=== PATIENT | male | born 1975 | race Hispanic/Latino ===

== ENCOUNTER 2021-02-19 16:13 | Emergency (ER) | payer SELFPAY ==
[2021-02-19 16:14] VITALS: BP 145/90; PULSE 76; RESP 16; TEMP 36.3; O2SAT 97; BMI 26.6
--- NOTE | 2021-02-19 16:36 | CT_ITS ---
STUDY: CT ABDOMEN AND PELVIS WITHOUT CONTRAST REASON FOR EXAM: Male, 46 years old. Right flank pain RADIATION DOSAGE (If Supplied By Facility): CTDIvol = ( 7.00 ) mGy, DLP = ( 407.48 ) mGycm TECHNIQUE: Axial CT images of the abdomen and pelvis were obtained without IV contrast administration. Multiplanar reconstructions. The protocol utilizes one or more of the following dose reduction techniques: automated exposure control, adjustment of mA and/or kV according to patient size, and/or use of iterative reconstruction technique. COMPARISON: No relevant priors. FINDINGS: Lower Chest Lungs: Normal. Heart: Normal. Ribs: Normal. Organs / Endocrine Liver: Normal. Gallbladder / Biliary Tree: Normal. Pancreas: Normal. Spleen: Normal. Adrenal Glands: Normal. Peritoneum Fluid Collections: None. Free Air: None. Intestinal Tract Evaluation of the GI tract is limited by absence of oral contrast. Cannot exclude stomach wall thickening. No dilated loops of bowel or evidence for obstruction. Cannot exclude segmental thickening of the adan of the small or large bowel. Cannot exclude enteritis or colitis. Moderate diffuse fecal retention. Appendix within normal limits. Urinary System Unremarkable kidneys. No definite renal or ureteral stones are seen. There is no hydronephrosis on either side. Ureter (right): Normal. Ureter (left): Normal. Bladder: Normal. Reproductive Organs Male, prostate: Enlarged prostate. Vessels Aorta: Normal. Inferior Vena Cava: Normal. Iliac Arteries: Normal. Lymph Nodes Retroperitoneal: Normal. Iliac / Inguinal: Normal. Mesenteric: Non-visualized. Bones Vertebrae: Normal. Pelvis / Sacrum: Normal. Abdominal Wall / Inguinal Region Defect: None. Hernia: None. CT/Abdomen/Pelvis without Cont IMPRESSION: No definite acute or significant abnormality seen. Electronically Signed: Trevor Lazar MD at 17:29 EDT , Service support ,
--- NOTE | 2021-02-19 16:40 | ED.VISSUMM ---
- ER Visit Summary Date of Service: 02/19/21 Chief Complaint: Right flank pain History of Present Illness: The patient is a 46 M past medical history of prior appendectomy and hernia repair. Patient states for the last 2 days since yesterday has had right-sided flank pain. Denies any nausea, vomiting, diarrhea, dysuria or fever. No prior history. No trauma. Nothing particular makes the pain better or worse. He denies any hematuria. He is never had a kidney stone. He still has his gallbladder. The pain is not necessarily associated with food. Physical Examination: Middle-aged male vital signs stable afebrile. H EENT exam unremarkable. Neck nontender. Lungs clear to auscultation bilaterally. Heart regular rhythm no murmur. Rate about 70. Abdomen is soft. Nondistended normal bowel sounds no peritoneal signs. He may have minimal right flank tenderness. There is no ecchymosis or bruising. No subcu air crepitance. Right lower quadrant McBurney's point are completely nontender right upper quadrant there is no Katz sign or any significant tenderness. There is no signs of trauma. Left side of his abdomen is nontender. Back nontender. No CVA tenderness. Patient is moving all 4 extremities. No edema. Neurologically is awake and alert with no focal motor deficits. Test Results: CBC normal white count of 7. Hemoglobin 15. No bands. Chemistries unremarkable normal creatinine and gap. Liver enzymes normal. UA normal. No signs of infection or blood. CT flank study as read by the radiologist and reviewed by me shows no acute abnormality. [place] exam at 5:50 PM patient is doing well. Will be discharged home. We went over all his test results. Emergency Department Course and Treatment: [place] male with right flank pain. He will be given IV Toradol for pain. CAT scan labs and urinalysis are being obtained. He has a relatively benign exam. Treatment Plan: Local follow-up with a primary care physician. Return if worse. Tylenol and/or Motrin for pain. Disposition: discharge Impression: Acute right flank pain of uncertain etiology. This note was generated with [employer] dictation software. It may contain incorrect words, spelling, and punctuation that were not noted in review of the chart prior to signing ED Disposition - Plan for ED Patient: Referrals: NOT,DEFINED [NON-STAFF] -
[2021-02-19] MEDS: Ketorolac 30 MG/ML Syringe IV (16:54)
[2021-02-19 16:58] LABS: Bacteria 0 SEEN /hpf (None Seen); Mucous, Urine 0 SEEN /hpf (<or=2+); Red Blood Cells-Urine 0 SEEN /hpf (0-5); Squamous Epithelial Cells - UA 0 SEEN /hpf (0-5); White Blood Cells 0 SEEN /hpf (0-5)
[2021-02-19 17:02] LABS: Glucose, Dipstick Normal (Normal); Ketone-Dipstick Negative (Negative); Leukocyte Esterase-Dipstick Negative /ul (Negative); Nitrite-Dipstick Negative (Negative); Occult Blood-Urine Negative /ul (Negative); Protein-Dipstick Negative (Negative); Urine Bilirubin Dipstick Negative (Negative); Urine Urobilinogen Normal (Normal)
[2021-02-19 17:03] LABS: Color, Urine Yellow (Yellow); Urine Clarity Clear (Clear)
[2021-02-19 17:07] LABS: Absolute Lymphocyte Count 1.73 X10^3/uL (0.83-4.51); Basophil# 0.08 X10^3/uL; Basophil% 1.1 % (0-1); Eosinophil# 0.36 X10^3/uL; Eosinophils% 4.7 % (0-5); Hematocrit 45.6 % (40-54); Hemoglobin 15.8 g/dL (13.0-16.5); Lymphocyte # 1.73 X10^3/ul (4.0); Lymphocyte % 22.8 % (19-41); Mean Corp Hgb Conc 34.6 g/dL (32-36); Mean Corpuscular Volume 89.6 fL (80-94); Mean Platelet Vol. 10.7 fl (6.2-12.0); Monocyte# 0.47 X10^3/uL; Monocyte% 6.2 % (0-10); NRBC Flagged by Analyzer 0 % (0-5); Neutrophil # 4.95 X10^3/uL (2.7-7.7); Neutrophil % 65.1 % (47-70); Platelet Count 234 K/mm3 (150-450); RBC Distribution Width CV 12.4 % (11.6-14.6); RBC Distribution Width SD 41.1 fl (35.1-43.9); Red Blood Count 5.09 M/mm3 (4.6-6.2); White Blood Count 7.6 K/mm3 (4.4-11.0)
[2021-02-19 17:23] LABS: ALB/GLOB Ratio 1.1 RATIO (0.9-2.4); AST(SGOT) 17 U/L (15-37); Alanine Aminotransfer ALT/SGPT 32 U/L (16-61); Albumin, Serum 3.8 g/dL (3.2-5.0); Alkaline Phosphatase 115 U/L (45-117); Anion Gap 5 (5-15); BUN 18 mg/dL (7-18); BUN/Creat Ratio 20.3 RATIO (10-20); Calcium,Total 8.5 mg/dL (8.5-10.1); Chloride 108 mmol/L (98-107); Creatinine, Serum 0.89 mg/dL (0.70-1.30); EST Glomerular Filtration Rate 97 mL/min (>60); Est Glom Filt Rate - Afr Amer 118 mL/min (>60); Globulin 3.5 g/dL (2.2-4.2); Glucose 132 mg/dL (74-106); Potassium 3.6 mmol/L (3.5-5.1); Protein, Total 7.3 g/dL (6.4-8.2); Sodium Level 141 mmol/L (136-145)
--- NOTE | 2021-02-19 17:51 | ED.DEP ---
ED Disposition - Plan for ED Patient: Disposition: Home or Assisted Living Instructions: ED Flank Pain, Uncertain Cause Referrals: [facility] [NON-STAFF] - 3-5 Days if not improving Additional Instructions: All your tests were normal. Return if increasing pain or feeling worse. Follow-up with local primary care physician.
[2021-02-19 18:01] VITALS: BP 125/77; PULSE 62; RESP 15; O2SAT 97
== END 2021-02-19 18:03 | disposition home or self-care (01) ==
PROVIDERS: Emergency Provider Emergency Medicine
DX: R10.9 Unspecified abdominal pain (principal)
CPT/HCPCS: 74176; 80053; 81001; 85025; 96374; 99284

== ENCOUNTER 2021-02-25 12:27 | Emergency (ER) | payer SELFPAY ==
[2021-02-25 12:30] VITALS: BP 126/77; PULSE 76; RESP 17; TEMP 36.6; O2SAT 97; BMI 26.4
--- NOTE | 2021-02-25 12:50 | CT_ITS ---
STUDY: CT ABDOMEN AND PELVIS WITHOUT CONTRAST REASON FOR EXAM: Male, 46 years old. Right sided pain RADIATION DOSAGE (If Supplied By Facility): CTDIvol = ( 7.08 ) mGy, DLP = ( 408.63 ) mGycm TECHNIQUE: Transaxial images were obtained from the dome of the diaphragm to the symphysis pubis without oral contrast, and without intravenous contrast. Sagittal and coronal images were reconstructed. Individualized dose optimization techniques were used for this CT. COMPARISON: 09/04/2011 FINDINGS: The visualized lung bases are unremarkable. The visualized portions of the heart are within normal limits. The lack of intravenous contrast limits the evaluation of solid visceral organs. Normal liver. Normal gallbladder and extrahepatic biliary system. Normal spleen. Normal pancreas. Normal bilateral adrenal glands. Normal right kidney. Normal left kidney. Normal visualized stomach. Normal small intestine. Normal colon. There are surgical clips in the region of the appendix consistent with a prior appendectomy. Normal abdominal aorta. Normal inferior vena cava. Normal retroperitoneum. Normal urinary bladder. There are grossly stable calcific densities within the right inguinal canal. Normal osseous structures. CT/Abdomen/Pelvis without Cont IMPRESSION: No acute intra-abdominal process. Electronically Signed: Klaudia Castro MD at 14:34 EDT Tel , Service support ,
--- NOTE | 2021-02-25 12:50 | EKG12_ITS ---
Test Reason : Blood Pressure : / mmHG Vent. Rate : 076 BPM Atrial Rate : 076 BPM P-R Int : 140 ms QRS Dur : 090 ms QT Int : 360 ms P-R-T Axes : 060 080 040 degrees QTc Int : 405 ms Normal sinus rhythm Normal ECG Confirmed by GEO BLEDSOE, IZA ([id number]), newspaper or periodical editor G[employer]SELLE VERA ([id number]) on 02/27/2021 1:41:16 PM Referred By: PATTI Confirmed By:IZA GUARDADO MD
--- NOTE | 2021-02-25 13:00 | ED.DCSUM_ITS ---
- ER Visit Summary Date of Service: 02/25/21 Chief Complaint: Abdominal pain History of Present Illness: The patient is a 46 M with no primary care physician. He reports his right side abdominal pain began 6 days ago. Is gradually gotten worse. Is a continuous throbbing pain that is 10 out of 10 in severity. Is worsened by movement relieved by pushing on it. States that he feels bloated and feels like when he looks in the mirror he sees a bulge on that side. States this is similar to when he had a hernia repair in 2007. Patient denies any associated nausea, vomiting, or diarrhea. His last bowel was today. No mono medic easy. No dysuria or frequency. He denies personal or family history of kidney stones or gallstones. He denies any spicy or fatty food intolerance. Physical Examination: Vitals: Stable. Afebrile. General: Well-nourished and well-developed. Head: Normocephalic atraumatic. Neck: Supple, no lymphadenopathy. No JVD. Nontender. Cardiovascular: Regular rate and rhythm. No murmurs. Respiratory: No respiratory distress. Clear to auscultation bilaterally. Abdominal: Soft, mild epigastric, right upper, and right lower quadrant tenderness to palpation, nondistended, normal bowel sounds. No guarding, rebound, or peritoneal signs. No appreciable hernia. Back: Nontender. No CVA tenderness. Extremities: Nontender, no edema. Skin: Normal color, no rash. Neurologic: Alert and oriented ?3. Cranial nerves II through XII are intact. Normal strength and sensation. Psych: Normal affect. Test Results: CBC shows if eosinophils of 6 and lymphocytes of 17. Chem-7 shows a CO2 of 34. LFTs show an alk phos of 122. Lipase is normal. Troponin is negative. TSH is 1.27. EKG is sinus at [address] changes. Clinical Impression(s) from Imaging Studies Abdomen/Pelvis CT 02/25/21 12:50 IMPRESSION: No acute intra-abdominal process. Electronically Signed: Klaudia Castro MD at 14:34 EDT Tel , Service support , Emergency Department Course and Treatment: Patient had an IV placed. He was given morphine and Zofran IV. He is resting more comfortably. Treatment Plan: Patient will be discharged with instructions to follow-up with the [facility] in 3 to 5 days for another exam. Return to the emergency department for any worsening symptoms. Disposition: To home in improved and stable condition. Impression: 1 1. Abdominal pain, uncertain cause. This note was generated with [employer] dictation software. It may contain incorrect words, spelling, and punctuation that were not noted in review of the chart prior to signing ED Disposition - Plan for ED Patient: Instructions: ED Unknown Causes of Abdominal ... Prescriptions: Famotidine [Pepcid] 20 mg PO BID #28 tablet Referrals: [facility] [NON-STAFF] - 3-5 Days Print Language: Setswana
[2021-02-25] MEDS: Ondansetron 4 MG/2 ML Vial IV (13:18)
[2021-02-25] MEDS: 0.9% Normal Saline 1,000 ML 1000 ML IV (13:18)
[2021-02-25] MEDS: Morphine 4 MG/ML Syringe IV (13:19)
[2021-02-25 13:37] LABS: Bacteria 0 SEEN /hpf (None Seen); Mucous, Urine 0 SEEN /hpf (<or=2+); Red Blood Cells-Urine 0 SEEN /hpf (0-5); Squamous Epithelial Cells - UA 0 SEEN /hpf (0-5); White Blood Cells 0 SEEN /hpf (0-5)
[2021-02-25 13:47] LABS: Absolute Lymphocyte Count 1.26 X10^3/uL (0.83-4.51); Absolute Neutrophil Count 5.2 X10^3/uL (2.0-7.7); Basophil% 1.3 % (0-1); Eosinophil# 0.47 X10^3/uL; Eosinophils% 6.3 % (0-5); Hematocrit 48.8 % (40-54); Hemoglobin 16.4 g/dL (13.0-16.5); Lymphocyte # 1.26 X10^3/ul (4.0); Lymphocyte % 16.8 % (19-41); Mean Corp Hgb Conc 33.6 g/dL (32-36); Mean Corpuscular Hgb 30.3 pg (27.0-32.0); Mean Corpuscular Volume 90.2 fL (80-94); Mean Platelet Vol. 10.9 fl (6.2-12.0); Monocyte# 0.44 X10^3/uL; Monocyte% 5.9 % (0-10); NRBC Flagged by Analyzer 0 % (0-5); Neutrophil % 69.4 % (47-70); Platelet Count 242 K/mm3 (150-450); RBC Distribution Width CV 12.3 % (11.6-14.6); RBC Distribution Width SD 40.4 fl (35.1-43.9); Red Blood Count 5.41 M/mm3 (4.6-6.2); White Blood Count 7.5 K/mm3 (4.4-11.0)
[2021-02-25 13:49] LABS: Color, Urine Yellow (Yellow); Glucose, Dipstick Normal (Normal); Ketone-Dipstick Negative (Negative); Leukocyte Esterase-Dipstick Negative /ul (Negative); Nitrite-Dipstick Negative (Negative); Occult Blood-Urine Negative /ul (Negative); Protein-Dipstick Negative (Negative); Specific Gravity, Urine 1.015 (1.002-1.030); Urine Bilirubin Dipstick Negative (Negative); Urine Clarity Clear (Clear); Urine Urobilinogen Normal (Normal)
[2021-02-25 14:02] LABS: ALB/GLOB Ratio 1.1 RATIO (0.9-2.4); AST(SGOT) 18 U/L (15-37); Alanine Aminotransfer ALT/SGPT 39 U/L (16-61); Alkaline Phosphatase 122 U/L (45-117); Anion Gap 0 (5-15); BUN 15 mg/dL (7-18); Calcium,Total 8.9 mg/dL (8.5-10.1); Chloride 106 mmol/L (98-107); Creatinine, Serum 0.94 mg/dL (0.70-1.30); EST Glomerular Filtration Rate 92 mL/min (>60); Est Glom Filt Rate - Afr Amer 111 mL/min (>60); Estimated Creatinine Clearance 92.98 ml/min; Globulin 3.6 g/dL (2.2-4.2); Glucose 79 mg/dL (74-106); Lipase 166 U/L (73-393); Potassium 3.6 mmol/L (3.5-5.1); Protein, Total 7.6 g/dL (6.4-8.2); Sodium Level 140 mmol/L (136-145); Thyroid Stim Hormone (TSH) 1.27 uIU/mL (0.358-3.74)
[2021-02-25 14:11] VITALS: PULSE 76; RESP 18; O2SAT 98
[2021-02-25 15:04] VITALS: BP 122/76; PULSE 68; RESP 19; O2SAT 100
== END 2021-02-25 15:05 | disposition home or self-care (01) ==
LOC: ED 13:12
PROVIDERS: Emergency Provider Emergency Medicine
DX: R10.9 Unspecified abdominal pain (principal); M54.9 Dorsalgia, unspecified; R00.2 Palpitations
CPT/HCPCS: 74176; 80053; 81001; 83690; 84443; 84484; 85025; 93005; 96361; 96374; 96375; 99283; J7030; J2405

== ENCOUNTER 2024-02-28 18:19 | Emergency (ER) | payer SELFPAY ==
[2024-02-28 18:20] VITALS: BP 138/85; PULSE 99; RESP 18; TEMP 37.1; O2SAT 99; BMI 28.3
--- NOTE | 2024-02-28 18:50 | EKG12_ITS ---
Test Reason : DYSRHYTHMIA Blood Pressure : / mmHG Vent. Rate : 084 BPM Atrial Rate : 084 BPM P-R Int : 154 ms QRS Dur : 082 ms QT Int : 358 ms P-R-T Axes : 065 059 018 degrees QTc Int : 423 ms Normal sinus rhythm Normal ECG Confirmed by Ludwin Jauregui ([id number]), editor trade journal GISSELLE VERA ([id number]) on 03/02/2024 11:13:47 AM Referred By: Confirmed By:Ludwin Jauregui
--- NOTE | 2024-02-28 18:52 | CT_ITS ---
STUDY: CT ABDOMEN AND PELVIS WITH CONTRAST REASON FOR EXAM: Male, 49 years old. abdominal pain RADIATION DOSAGE (If Supplied By Facility): CTDIvol = ( 11.09 ) mGy, DLP = ( 1293.95 ) mGycm TECHNIQUE: Transaxial images were obtained from the dome of the diaphragm to the symphysis pubis without oral contrast. IV 100mL Isovue-300 was administered. Sagittal and coronal images were reconstructed. Individualized dose optimization techniques were used for this CT. COMPARISON: None. FINDINGS: The visualized lung bases are unremarkable. The visualized portions of the heart are within normal limits. Normal liver. Normal gallbladder and extrahepatic biliary system. Normal spleen. Normal pancreas. Normal bilateral adrenal glands. Normal right kidney. Normal left kidney. Normal visualized stomach. Normal small intestine. Normal colon. The appendix is not visualized. Motion artifact limiting evaluation of the bowel loops. Normal abdominal aorta. Normal inferior vena cava. Normal retroperitoneum. Normal urinary bladder. Small fatty umbilical hernia. Normal osseous structures. CT/Abdomen/Pelvis W IV Cont ONLY IMPRESSION: No acute pathology of the abdomen and pelvis. Electronically Signed: Edgar Cristina DO at 20:03 EDT Reading Location ID and State: [facility] / [place] Tel [phone], Service support ,
--- NOTE | 2024-02-28 19:20 | EDS_ITS ---
HPI <MESSI Santiago - Last Filed: 02/28/24 20:37> History of Present Illness Chief Complaint: Abd Pain Narrative Narrative: Patient is a 49-year-old male with no significant medical history who presents to the emergency department with 1 day of nausea, vomiting, abdominal pain. Patient states the abdominal pain started in his lower abdomen went to his upper abdomen and then to his chest. Patient states he has had 2 episodes of vomiting, and limited bowel movements today. He is still passing gas. Patient denies any blood in stool or vomit. PFSH <MESSI Santiago - Last Filed: 02/28/24 20:37> [facility] Home Medications famotidine 20 mg tablet 20 mg PO BID #28 TABLETS 02/25/21 [Rx Last Taken Unknown] omeprazole 40 mg capsule,delayed release 40 mg PO DAILY #30 caps 02/28/24 [Rx Last Taken Unknown] ondansetron 4 mg disintegrating tablet 4 mg PO Q8H PRN PRN Nausea #20 tabs 02/28/24 [Rx Last Taken Unknown] Allergy/AdvReac Type Severity Reaction Status Date / Time No Known Allergies Allergy Verified 03/01/21 15:01 Social History (System 03/01/21 @ 15:01 by Dirk Ji) Smoking Status: Never smoker ROS <MESSI Santiago - Last Filed: 02/28/24 20:37> ROS ED ROS Narrative Constitutional: Negative for fever, chills, weight loss, weakness Eyes: Negative for vision loss, vision change, double vision ENT: Negative for any sore throat, ear pain, congestion Cardiovascular: Negative for any chest pain, tightness, palpitations Respiratory: Negative for any cough, sputum production, hemoptysis, dyspnea, dyspnea on exertion, orthopnea Gastrointestinal: Negative for any diarrhea, constipation, blood in stool, blood in vomit. Positive for abdominal pain, nausea and vomiting : Negative for any urinary frequency, dysuria, retention, blood in urine Muscle skeletal: Negative for any neck pain, back pain. Neurological: Negative for any headache, syncope, dizziness Skin: Negative for any rashes, itching, abrasions, lacerations Psychiatric: Negative for any depression, anxiety, stress, suicidal ideation, homicidal ideation Hematologic: Negative for any excessive bruising, easy bleeding EXAM <MESSI Santiago - Last Filed: 02/28/24 20:37> Physical Exam Narrative Exam Narrative: Vital signs reviewed. HEET: Head normocephalic atraumatic, TMs clear bilaterally. Posterior pharynx is clear, moist mucous membranes. Nares clear bilaterally. Neck: Supple with no lymphadenopathy or tenderness. No signs of meningismus. Cardiac: Regular rate and rhythm no murmurs gallops or rubs, equal peripheral pulses bilaterally. Respiratory: Lungs clear to auscultation bilaterally. No chest tenderness. Abdomen: Soft, nondistended. No abdominal bruit or pulsatile masses. No hepatosplenomegaly. Tenderness to the right lower abdomen and right upper abdomen. No peritoneal signs. Active bowel sounds in all quadrants Extremities: No peripheral edema, no signs of gross trauma or deformity. Active full range of motion of all extremities. Neuro: Cranial nerves II through XII intact, no focal neurological deficits. Skin: Clean dry and intact with no rash, purpura, petechiae, vesicles or pustules. Backs/flank: No CVA tenderness, no midline spinal tenderness, no deformity. Psych: Normal mood and affect. No SI, HI or acute psychosis. Const Vital Signs: 02/28/24 18:20 02/28/24 20:55 Temperature 98.7 F 98.9 F Temperature Source Temporal Pulse Rate 99 89 Respiratory Rate 18 16 Blood Pressure 138/85 H 130/84 H Blood Pressure Mean 102 99 Pulse Ox 99 97 Oxygen Delivery Method Room Air Positive well nourished and well developed General Appearance ED: well developed <Dr. David Wellington DO - Last Filed: 02/28/24 21:12> Physical Exam Const Vital Signs: 02/28/24 18:20 02/28/24 20:55 Temperature 98.7 F 98.9 F Temperature Source Temporal Pulse Rate 99 89 Respiratory Rate 18 16 Blood Pressure 138/85 H 130/84 H Blood Pressure Mean 102 99 Pulse Ox 99 97 Oxygen Delivery Method Room Air MDM <MESSI Santiago - Last Filed: 02/28/24 20:37> MDM Lab Data Labs: Laboratory Results - last 24 hr 02/28/24 02/28/24 19:15 19:56 WBC 10.7 RBC 4.63 Hgb 13.3 Hct 41.5 MCV 89.6 MCH 28.7 MCHC 32.0 RDW Std Deviation 42.9 RDW Coeff of Prerna 13.2 Plt Count 289 MPV 9.3 Immature Gran % (Auto) 0.400 Neut % (Auto) 89.5 H Lymph % (Auto) 4.6 L [place] % (Auto) 4.2 Eos % (Auto) 0.6 Baso % (Auto) 0.7 Absolute Neuts (auto) 9.6 H Absolute Lymphs (auto) 0.49 L Nucleated RBC % 0 Sodium 139 Potassium 3.6 Chloride 108 H Carbon Dioxide 27.0 Anion Gap 4 L BUN 17 Creatinine 0.93 Estim Creat Clear Calc 96.24 Est GFR (MDRD) Af Amer 110 Est GFR (MDRD) Non-Af 91 BUN/Creatinine Ratio 18.3 Glucose 125 H Calcium 8.4 L Total Bilirubin 0.40 AST 107 H ALT 75 H Alkaline Phosphatase 226 H Troponin I High Sens 3 Total Protein 7.0 Albumin 2.9 L Globulin 4.1 Albumin/Globulin Ratio 0.7 L Lipase 52 Urine Color Yellow Urine Clarity Clear Urine pH 6.5 Ur Specific [place] 1.015 Urine Protein 100 H Urine Glucose (UA) Normal Urine Ketones Negative Urine Occult Blood 10 H Urine Nitrite Negative Urine Bilirubin Negative Urine Urobilinogen 1 H Ur Leukocyte Esterase Negative Urine RBC 0 SEEN Urine WBC 0 SEEN Ur Squamous Epith Cells 0 SEEN Urine Bacteria 0 SEEN Urine Mucus 0 SEEN Radiography Diagnostic Testing: Clinical Impression(s) from Imaging Studies Abdomen/Pelvis CT 02/28/24 18:52 IMPRESSION: No acute pathology of the abdomen and pelvis. Electronically Signed: Edgar Cristina DO at 20:03 EDT Reading Location ID and State: [address] [place] [address] Tel [phone], Service support , EKG Normal sinus rhythm rate of 84: Attestation: I personally reviewed and interpreted this EKG as follows: Comments: Normal sinus rhythm rate of 84 bpm, [place] interval 154 ms, QRS duration 82 ms, no acute ST elevation, no acute infarct noted. Treatment and Re-Evaluation :: Differential diagnosis includes however is not limited to: Acute cholecystitis, pancreatitis, appendicitis, gastroenteritis, viral-like syndrome Patient appears generally well, patient appears nontoxic, vital signs are stable. Presenting to the emergency department with complaints of epigastric pain, lower abdominal pain with nausea and vomiting. Patient did receive a EKG which was unremarkable. Patient received a full abdominal workup including CBC CMP and lipase. CT scan of the abdomen pelvis to be completed. Patient be given IV fluids, Zofran, Toradol as well as GI cocktail. Patient will be reevaluated. All radiologic examinations were read, reviewed by the emergency department attending. From these reads, a plan of care will be put in place. Patient on reevaluation was feeling better. Patient's urinalysis was negative for any infection. CBC was unremarkable, patient's chemistries did show some transaminitis with an AST of 107, ALT of 75 with a alkaline phosphatase of 226. I did speak with the patient with the iPad rooming house operator, patient has no history of any hepatitis, drinking alcohol, IV drug abuse. Patient will refrain from taking Tylenol. Patient's lipase was negative. Patient did receive a CT scan of the abdomen pelvis, this showed no acute pathology of the abdomen and pelvis. At this time, patient will follow-up with a primary care physician as well as a GI specialist. Patient be set given omeprazole 40 mg daily for 1 month with 2 refills as well as Zofran as needed. He was instructed to stay away from alcohol, Tylenol. He will follow-up outpatient. All questions answered stable for discharge. <Dr. David Wellington, DO - Last Filed: 02/28/24 21:12> [facility] History & Record Review Discussion w/independent historian: Patient Additional record(s) reviewed:: Prior ED visit and Prior labs Lab Data Attestation: I reviewed the patient's lab results. Labs: Laboratory Results - last 24 hr 02/28/24 02/28/24 19:15 19:56 WBC 10.7 RBC 4.63 Hgb 13.3 Hct 41.5 MCV 89.6 MCH 28.7 MCHC 32.0 RDW Std Deviation 42.9 RDW Coeff of Prerna 13.2 Plt Count 289 MPV 9.3 Immature Gran % (Auto) 0.400 Neut % (Auto) 89.5 H Lymph % (Auto) 4.6 L [place] % (Auto) 4.2 Eos % (Auto) 0.6 Baso % (Auto) 0.7 Absolute Neuts (auto) 9.6 H Absolute Lymphs (auto) 0.49 L Nucleated RBC % 0 Sodium 139 Potassium 3.6 Chloride 108 H Carbon Dioxide 27.0 Anion Gap 4 L BUN 17 Creatinine 0.93 Estim Creat Clear Calc 96.24 Est GFR (MDRD) Af Amer 110 Est GFR (MDRD) Non-Af 91 BUN/Creatinine Ratio 18.3 Glucose 125 H Calcium 8.4 L Total Bilirubin 0.40 AST 107 H ALT 75 H Alkaline Phosphatase 226 H Troponin I High Sens 3 Total Protein 7.0 Albumin 2.9 L Globulin 4.1 Albumin/Globulin Ratio 0.7 L Lipase 52 Urine Color Yellow Urine Clarity Clear Urine pH 6.5 Ur Specific [place] 1.015 Urine Protein 100 H Urine Glucose (UA) Normal Urine Ketones Negative Urine Occult Blood 10 H Urine Nitrite Negative Urine Bilirubin Negative Urine Urobilinogen 1 H Ur Leukocyte Esterase Negative Urine RBC 0 SEEN Urine WBC 0 SEEN Ur Squamous Epith Cells 0 SEEN Urine Bacteria 0 SEEN Urine Mucus 0 SEEN Radiography Diagnostic Testing: Clinical Impression(s) from Imaging Studies Abdomen/Pelvis CT 02/28/24 18:52 IMPRESSION: No acute pathology of the abdomen and pelvis. Electronically Signed: Edgar Cristina DO at 20:03 EDT Reading Location ID and State: [facility] / [place] Tel [phone], Service support , Treatment and Re-Evaluation :: Differential diagnosis includes however is not limited to: Acute cholecystitis, pancreatitis, appendicitis, gastroenteritis, viral-like syndrome Patient appears generally well, patient appears nontoxic, vital signs are stable. Presenting to the emergency department with complaints of epigastric pain, lower abdominal pain with nausea and vomiting. Patient did receive a EKG which was unremarkable. Patient received a full abdominal workup including CBC CMP and lipase. CT scan of the abdomen pelvis to be completed. Patient be given IV fluids, Zofran, Toradol as well as GI cocktail. Patient will be reevaluated. All radiologic examinations were read, reviewed by the emergency department attending. From these reads, a plan of care will be put in place. Patient on reevaluation was feeling better. Patient's urinalysis was negative for any infection. CBC was unremarkable, patient's chemistries did show some transaminitis with an AST of 107, ALT of 75 with a alkaline phosphatase of 226. I did speak with the patient with the iPad rooming house operator, patient has no history of any hepatitis, drinking alcohol, IV drug abuse. Patient will refrain from taking Tylenol. Patient's lipase was negative. Patient did receive a CT scan of the abdomen pelvis, this showed no acute pathology of the abdomen and pelvis. At this time, patient will follow-up with a primary care physician as well as a GI specialist. Patient be set given omeprazole 40 mg daily for 1 month with 2 refills as well as Zofran as needed. He was instructed to stay away from alcohol, Tylenol. He will follow-up outpatient. All questions answered stable for discharge. I have personally performed a face to face assessment of the patient and have reviewed the JOHN Note. I performed a substantive portion of the visit including all aspects of the following. My mariee findings include: History is 49-year-old male with a history of prior hernia surgery presenting to the emergency room with abdominal pain. Patient notes associated nausea and vomiting. Describes as epigastric and lower in nature. Particularly on the right. Exam is mild tenderness to palpation. Abdomen is still soft. He is well- appearing. Normal bowel sounds. I do not appreciate any hepatosplenomegaly on exam. No obvious masses. While tender I would not characterize his abdomen is surgical. Medical Decison Making basic blood work was obtained. There is slight elevation in alkaline phosphatase AST and ALT of uncertain etiology. CT abdomen pelvis did not demonstrate anything acute. I do not see any obvious cirrhosis or dilatated hepatic ducts. Pancreas is appearing normal both on the CT and on blood work. White count is negative. At this point patient will be referred to GI. Unclear the etiology of his pain. Not seen anything emergent that would recommend admission for at this time. Discharge Plan Triage Chief Complaint: Abd Pain ED Midlevel Provider: Zhao Rob ED Provider: David Wellington Dx/Rx/DC Orders Clinical Impression: Transaminitis, Nausea & vomiting, Abdominal pain Instructions: Hepatitis Panel, Abdominal Pain Prescriptions: New omeprazole 40 mg capsule,delayed release(DR/EC) 40 mg PO DAILY Qty: 30 2RF ondansetron 4 mg tablet,disintegrating 4 mg PO Q8H PRN PRN (Reason: Nausea) Qty: 20 0RF No Action famotidine 20 MG tablet 20 mg PO BID Qty: 28 0RF Primary Care Provider: Care Physician,No Primary Referrals: Brandee Quiroz MD [Med Staff - Active Staff] - Friend,DO Pratik [Med Staff - Active Staff] - Care Physician,No Primary [Primary Care Provider] - Activity Restrictions/Additional Instructions: Your liver enzymes were elevated. Stay away from Tylenol. Follow-up outpatient. I did send a hepatitis panel. This does not come back in 1 day. Print Language: Maldivian Disposition Disposition: Home, Self Care Discharge Date/Time: 02/28/24 20:57
[2024-02-28] MEDS: Mag Hydrox/Al Hydrox/Simeth 30 ML UDC PO (19:22)
[2024-02-28] MEDS: 0.9% Normal Saline (1000mL) 1,000 ML 1000 ML IV (19:22)
[2024-02-28] MEDS: Ondansetron 4 MG/2 ML Vial IV (19:23)
[2024-02-28] MEDS: Ketorolac 15 MG/ML Vial IV (19:26)
[2024-02-28 19:45] LABS: Absolute Lymphocyte Count 0.49 X10^3/uL (0.83-4.51); Absolute Neutrophil Count 9.6 X10^3/uL (2.0-7.7); Basophil# 0.07 X10^3/uL; Basophil% 0.7 % (0-1); Eosinophil# 0.06 X10^3/uL; Eosinophils% 0.6 % (0-5); Hematocrit 41.5 % (40-54); Hemoglobin 13.3 g/dL (13.0-16.5); Lymphocyte # 0.49 X10^3/ul (0.83-4.51); Lymphocyte % 4.6 % (19-41); Mean Corpuscular Hgb 28.7 pg (27.0-32.0); Mean Corpuscular Volume 89.6 fL (80-94); Mean Platelet Vol. 9.3 fl (6.2-12.0); Monocyte# 0.45 X10^3/uL; Monocyte% 4.2 % (0-10); NRBC Flagged by Analyzer 0 % (0-5); Neutrophil # 9.55 X10^3/uL (2.7-7.7); Neutrophil % 89.5 % (47-70); POSITIVE DIFFERENTIAL YES; Platelet Count 289 K/mm3 (150-450); RBC Distribution Width CV 13.2 % (11.6-14.6); RBC Distribution Width SD 42.9 fl (35.1-43.9); Red Blood Count 4.63 M/mm3 (4.6-6.2); White Blood Count 10.7 K/mm3 (4.4-11.0)
[2024-02-28 19:49] LABS: ALB/GLOB Ratio 0.7 RATIO (0.9-2.4); AST(SGOT) 107 U/L (15-37); Alanine Aminotransfer ALT/SGPT 75 U/L (16-61); Albumin, Serum 2.9 g/dL (3.2-5.0); Alkaline Phosphatase 226 U/L (45-117); Anion Gap 4 (5-15); BUN 17 mg/dL (7-18); BUN/Creat Ratio 18.3 RATIO (10-20); Calcium,Total 8.4 mg/dL (8.5-10.1); Chloride 108 mmol/L (98-107); Creatinine, Serum 0.93 mg/dL (0.70-1.30); EST Glomerular Filtration Rate 91 mL/min (>60); Est Glom Filt Rate - Afr Amer 110 mL/min (>60); Estimated Creatinine Clearance 96.24 ml/min; Globulin 4.1 g/dL (2.2-4.2); Glucose 125 mg/dL (74-106); Lipase 52 U/L (13-75); Potassium 3.6 mmol/L (3.5-5.1); Sodium Level 139 mmol/L (136-145); Troponin-I HS 3 pg/mL (3.0-78.0)
[2024-02-28 20:05] LABS: Bacteria 0 SEEN /hpf (None Seen); Mucous, Urine 0 SEEN /hpf (<or=2+); Red Blood Cells-Urine 0 SEEN /hpf (0-5); Squamous Epithelial Cells - UA 0 SEEN /hpf (0-5); White Blood Cells 0 SEEN /hpf (0-5)
[2024-02-28 20:17] LABS: Color, Urine Yellow (Yellow); Glucose, Dipstick Normal (Normal); Ketone-Dipstick Negative (Negative); Leukocyte Esterase-Dipstick Negative /ul (Negative); Nitrite-Dipstick Negative (Negative); Occult Blood-Urine 10 /ul (Negative); Protein-Dipstick 100 mg/dl (Negative); Specific Gravity, Urine 1.015 (1.002-1.030); Urine Bilirubin Dipstick Negative (Negative); Urine Clarity Clear (Clear); Urine Urobilinogen 1 mg/dl (Normal); Urine pH 6.5 (5.0 - 8.0)
[2024-02-28 20:55] VITALS: BP 130/84; PULSE 89; RESP 16; TEMP 37.2; O2SAT 97
--- NOTE | 2024-02-28 21:23 | ED.RN ---
This RN discharged the patient without sending down a hepatic lab draw. This RN attempted to call the patient to come back in but he did not answer the phone. Will try again shortly.
--- NOTE | 2024-02-29 01:43 | ED.RN ---
Pt returned to the ER at 2230 and a straight stick was obtained to gather the blood for the hepatic panel. Patient left the unit after the blood draw.
[2024-03-01 08:08] LABS: HEPATITIS B SURFACE AG Negative (Negative); Hep C Antibodies Non Reactive (Non Reactive); Hepatitis A IgM Antibody Negative (Negative); Hepatitis B Core AB IgM Negative (Negative)
== END 2024-02-28 20:57 | disposition home or self-care (01) ==
PROVIDERS: Emergency Provider Emergency Medicine; Visit Provider Emergency Medicine
DX: R74.01 Elevation of levels of liver transaminase levels (principal); R10.13 Epigastric pain; R11.2 Nausea with vomiting, unspecified; Z79.899 Other long term (current) drug therapy
CPT/HCPCS: 74177; 80053; 80074; 81001; 83690; 84484; 85025; 93005; 96361; 96374; 96375; 99284; J7030; Q9967; A4216; J2405